=== PATIENT | male | born 1990 | race Caucasian/White ===

== ENCOUNTER 2017-11-28 02:41 | Emergency (ER) | payer OTHER | END 2017-11-28 04:12 | disposition home or self-care (01) | LOC: ER 02:41 | DX: S93.401A Sprain of unspecified ligament of right ankle, initial encounter (principal); M20.11 Hallux valgus (acquired), right foot; X50.0XXA Overexertion from strenuous movement or load, initial encounter; Y93.89 Activity, other specified; Y99.8 Other external cause status; Y92.89 Other specified places as the place of occurrence of the external cause | CPT/HCPCS: 73610; 73630; 99284-25 ==